=== PATIENT | female | born 1995 | race Two or more races ===

== ENCOUNTER 2025-03-28 06:34 | Emergency (ER) | payer BC, MEDICAID ==
[~2025-03-28] VITALS: Ht 152.4 cm; Wt 96.7 kg
[2025-03-28 07:57] LABS: Chloride 101 mmol/L (98-107)
[2025-03-28 07:58] LABS: Anion Gap 12 (5-15); Carbon Dioxide 22 mmol/L (20-31); Hematocrit 38.8 % (36.0-46.0); Hemoglobin 13.2 g/dL (12.2-16.2); Mean Corpuscular Hemoglobin 28.2 pg (28.0-32.0); Mean Corpuscular Volume 82.9 fL (80.0-100.0); Nucleated Red Blood Cells % 0.0 %
[2025-03-28 07:59] LABS: Calcium 8.9 mg/dL (8.7-10.4)
[2025-03-28] MEDS: PSEUDOEPHEDRINE HCL 30 MG TAB PO ONE (08:03)
[2025-03-28] MEDS: ONDANSETRON ODT 4 MG TAB PO ONE (08:04)
[2025-03-28] MEDS: ACETAMINOPHEN 325 MG TAB PO ONE (08:04)
[2025-03-28 08:05] LABS: BUN/Creatinine Ratio 6.5 (10.0-20.0); Blood Urea Nitrogen < 5 mg/dL (9-23); Glucose 119 mg/dL (74-106); Potassium 3.2 mmol/L (3.5-5.1); Sodium 135 mmol/L (136-145)
--- NOTE | 2025-03-28 08:07 | ED.PDOC ---
GI ASSESSMENT HPI Comments 29 y/o F, presents to the ED for CC of abdominal pain. Patient states, she has been experiencing epigastric abdominal pain with associated nausea and diarrhea sudden onset, last night (03/27/25). Patient denies vomiting, fatigue, or melena. No other symptoms or modifying factors are present at this time. 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 Family History Family History: Unknown Social History Smoker: Non-Smoker Alcohol: Denies ETOH Use Drugs: Denies Drug Use Lives In: Home Constitutional: reports: chills, fever; denies: diaphoresis, fatigue, malaise, sweats, weakness, others EENTM: denies: blurred vision, double vision, ear bleeding, ear discharge, ear drainage, ear pain, ear ringing, eye pain, eye redness, hearing loss, mouth pain, mouth swelling, nasal discharge, nose bleeding, nose congestion, nose pain, photophobia, tearing, throat pain, throat swelling, voice changes, others Respiratory: denies: cough, hemoptysis, orthopnea, SOB at rest, shortness of breath, SOB with excertion, stridor, wheezing, others Cardiovascular: denies: chest pain, dizzy spells, diaphoresis, Dyspnea on exertion, edema, irregular heart beat, left arm pain, lightheadedness, palpitations, PND, syncope, others Gastrointestinal: reports: abdominal pain, diarrhea, nausea; denies: abdomen distended, blood streaked bowels, constipated, dysphagia, difficulty swallowing, hematemesis, melena, poor appetite, poor fluid intake, rectal bleeding, rectal pain, vomiting, others Genitourinary: denies: abnormal vagina bleeding, burning, dyspareunia, dysuria, flank pain, frequency, hematuria, incontinence, pain, , vagina dischar ge, urgency, others Neurological: denies: dizziness, fainting, headache, left sided numbness, left sided weakness, numbness, paresthesia, pre-existing deficit, right sided numbness, right sided weakness, seizure, speech problems, tingling, tremors, weakness, others Musculoskeletal: denies: back pain, gout, joint pain, joint swelling, muscle pain, muscle stiffness, neck pain, others Integumetry: denies: bruises, change in color, change in hair/nails, dryness, laceration, lesions, lumps, rash, wounds, others Allergic/Immunocompromised: denies: Difficulty Healing, Frequent Infections, Hives, Itching, others Hematologic/Lymphatic: denies: anemia, blood clots, easy bleeding, easy bruising, swollen glands, others Endocrine: denies: excessive hunger, excessive sweating, excessive thirst, excessive urination, flushing, intolerance to cold, intolerance to heat, unexplained weight gain, unexplained weight loss, others Psychiatric: denies: anxiety, bipolar disorder, depression, hopeless, panic disorder, schizophrenia, sleepless, suicidal, others All Other Systems: Reviewed and Negative Physical Exam General Appearance: No Apparent Distress, Normal HEENT: Normal ENT Inspection, Pharynx Normal Neck: Full Range of Motion, Non-Tender, Normal, Normal Inspection Respiratory: Chest Non-Tender, Lungs Clear, No Accessory Muscle Use, No Respiratory Distress, Normal Breath Sounds Cardiovascular: No Edema, No Murmur, No Gallop, Normal Peripheral Pulses, Regular Rate/Rhythm Breast Exam: Deferred Gastrointestinal: No Organomegaly, Non Tender, No Pulsatile Mass, Normal Bowel Sounds, Soft Genitalia: Deferred Pelvic: Deferred Rectal: Deferred Extremities: No calf tenderness, Normal capillary refill, Normal inspection, Normal range of motion, Non-tender, No pedal edema Musculoskeletal : Apperance: Normal Neurologic: Alert, hydro mechanic II-XII nml as Tested, No Motor Deficits, Normal Affect, Normal Mood, No Sensory Deficits Cerebellar Function: Normal Reflexes: Normal Skin: Dry, Normal Color, Warm Lymphatic: No Adenopathy Was a procedure done? Was a procedure done?: No GI differential Dx Differential Diagnosis: Gastritis/PUD, Gastroenteritis, Inflammatory BD, Electrolyte Imbalance, Food Poisoning, Bacterial, Viral X-Ray, Labs, Meds, VS Vital Signs Date Time Temp Pulse Resp B/P (MAP) Pulse Ox O2 Delivery O2 Flow Rate FiO2 03/28/25 06:41 98.3 132 20 111/70 96 98.3 Lab Test 03/28/25 07:54 03/28/25 07:39 03/28/25 07:34 Range/Units Stool for White Cells Pending White Blood Count 14.3 H 4.4-10.8 10^3/uL Red Blood Count 4.68 4.0-5.20 10^6/uL Hemoglobin 13.2 12.2-16.2 g/dL Hematocrit 38.8 36.0-46.0 % Mean Corpuscular Volume 82.9 80.0-100.0 fL Mean Corpuscular Hemoglobin 28.2 28.0-32.0 pg Mean Corpuscular Hemoglobin Concent 34.0 32.0-36.0 g/dL Red Cell Distribution Width 13.8 11.8-14.3 % Platelet Count 326 140-450 10^3/uL Mean Platelet Volume 8.4 6.9-10.8 fL Neutrophils (%) (Auto) 90.8 H 37.0-80.0 % Lymphocytes (%) (Auto) 6.7 L 10.0-50.0 % Monocytes (%) (Auto) 2.3 0.0-12.0 % Eosinophils (%) (Auto) 0.0 0.0-7.0 % Basophils (%) (Auto) 0.2 0.0-2.0 % Neutrophils # (Auto) 12.9 H 1.6-8.6 10 ^3/uL Lymphocytes # (Auto) 1.0 0.4-5.4 10 ^3/uL Monocytes # (Auto) 0.3 0-1.3 10 ^3/uL Eosinophils # (Auto) 0 0-0.8 10 ^3/uL Basophils # (Auto) 0 0-0.2 10 ^3/uL Nucleated Red Blood Cells 0.0 % Sodium Level 135 L 136-145 mmol/L Potassium Level 3.2 L 3.5-5.1 mmol/L Chloride Level 101 98-107 mmol/L Carbon Dioxide Level 22 20-31 mmol/L Anion Gap 12 5-15 Blood Urea Nitrogen < 5 L 9-23 mg/dL Creatinine 0.77 0.550-1.02 mg/dL Glomerular Filtration Rate Calc 106 >90 mL/min BUN/Creatinine Ratio 6.5 L 10.0-20.0 Serum Glucose 119 H 74-106 mg/dL Calcium Level 8.9 8.7-10.4 mg/dL Urine Color Light-yellow Yellow Urine Clarity Clear Clear Urine pH 6.0 5.0-9.0 Urine Specific [place] 1.008 1.001-1.035 Urine Protein Negative Negative Urine Ketones Negative Negative Urine Blood 1+ H Negative /uL Urine Nitrite Negative Negative Urine Bilirubin Negative Negative Urine Urobilinogen Normal Negative mg/dL Urine Leukocyte Esterase Negative Negative /uL Urine RBC 2 0 - 4 /hpf Urine Microscopic WBC 1 0-5 /HPF Urine Squamous Epithelial Cells Few <5 /hpf Urine Bacteria None seen None Seen /hpf Urine Glucose Normal Normal mg/dL Urine Test Negative Negative Current Medications Medications (Trade) Dose Ordered Sig/Leida Route Start Time Stop Time Status Last Admin Ondansetron HCl (Zofran Po) 4 mg ONCE ONCE PO 03/28/25 07:30 03/28/25 07:31 DC 03/28/25 08:04 Acetaminophen (Tylenol Tablet) 650 mg ONCE ONCE PO 03/28/25 07:30 03/28/25 07:31 DC 03/28/25 08:04 Pseudoephedrine HCl (Sudafed Tablet) 30 mg ONCE ONCE PO 03/28/25 07:30 03/28/25 07:31 DC 03/28/25 08:03 Dicyclomine HCl (Bentyl Capsule) 20 mg ONCE ONCE PO 03/28/25 08:30 03/28/25 08:31 DC 03/28/25 09:04 Loperamide HCl (Imodium Capsule) 4 mg ONCE ONCE PO 03/28/25 08:30 03/28/25 08:31 DC 03/28/25 09:04 [place] [id number] Ph: [phone] DIAGNOSTIC IMAGING Diagnostic Imaging Report : [id number] Signed PATIENT: IRISH PETE ACCT: [id number] UNIT: [id number] : 1995 LOC: ER ROOM / BED: / AGE / SEX: 29 / F ADM STATUS: REG ER SERVICE [id number] ORDERING PHYSICIAN: SUSANNE ROBBINS MD PROCEDURE(s): CXRP - CHEST PORTABLE REASON: fever ORDER NUMBER(s): [id number], ACCESSION NUMBER(s): [id number] EXAM: XY CHEST PORTABLE Indication: fever Technique: Single frontal view of the chest was obtained Comparison: None FINDINGS: Lines and Tubes: None Lungs: No focal consolidation. Pleura: No effusion. No pneumothorax. Cardiomediastinal contours: Unremarkable Bones: No acute osseous abnormality. IMPRESSION: No acute cardiopulmonary disease. ATED BY: ZACK OTERO MD DICTATED DATE/TIME: 03/28/25911 SIGNED BY: ZACK OTERO MD SIGNED DATE/TIME: 03/28/25911 CC: Time of 1ST Reevaluation: 07:55 Reevaluation 1ST: Unchanged Patient Education/Counseling: Diagnosis, Treatment Family Education/Counseling: No Family Present SEPSIS Sepsis Screen Date sepsis recognized/suspect: Mar 28, 2025 Time Sepsis recognized/suspect: 0643 Recent Procedure: No On Antibiotic Therapy: No Respiratory Rate >20: No Heart Rate >90: Yes Temp<36 C (96.8 F) or >38.3 C: No SBP <90 or MAP <65 mmHG: No New Acute Mental Status Change: No Is the patient on CPAP, BIPAP,: No Physician Orders Chest Portable (03/28/25 07:29) Clostridium Difficile Toxin (03/28/25 08:10) Stool Bacterial Culture (03/28/25 08:10) Stool Wbc (03/28/25 08:10) Vital Signs Date Time Temp Pulse Resp B/P (MAP) Pulse Ox O2 Delivery O2 Flow Rate FiO2 03/28/25 06:41 98.3 132 20 111/70 96 98.3 Laboratory Tests Test 03/28/25 07:39 White Blood Count 14.3 10^3/uL (4.4-10.8) H Medications Medications Dose Ordered Sig/Leida Route Start Time Stop Time Status Last Admin Dose Admin Acetaminophen 650 mg ONCE ONCE PO 03/28/25 07:30 03/28/25 07:31 DC 03/28/25 08:04 Dicyclomine HCl 20 mg ONCE ONCE PO 03/28/25 08:30 03/28/25 08:31 DC 03/28/25 09:04 Loperamide HCl 4 mg ONCE ONCE PO 03/28/25 08:30 03/28/25 08:31 DC 03/28/25 09:04 Ondansetron HCl 4 mg ONCE ONCE PO 03/28/25 07:30 03/28/25 07:31 DC 03/28/25 08:04 Pseudoephedrine HCl 30 mg ONCE ONCE PO 03/28/25 07:30 03/28/25 07:31 DC 03/28/25 08:03 Departure 1 Departure Time of Disposition: 10:10 (Patient likely with a viral syndrome and viral gastroenteritis. We will discharge patient home with outpatient follow up) Impression: Primary Impression: Viral gastroenteritis Disposition: HOME / SELF CARE / HOMELESS Condition: Stable Additional Instructions: You likely have gastroenteritis. It is important to stay well hydrated and well rested. You can take [id number] loperamide as needed for diarrhea. This usually resolves within 1 week. If your symptoms worsen or you have any other concerns please return to the ER. Discharged With: Self Critical Care Note Critical Care Time?: No Stability Stability form required: No Heart Score Heart Score: Heart Score Response (Comments) Value History N/A 0 EKG N/A 0 Age N/A 0 Risk Factors N/A 0 Troponin N/A 0 Total 0 I personally scribed for SUSANNE ROBBINS MD ([email or web address]) on 03/28/25 at 08:07. Electronically submitted by Kim Albright ([email or web address]). I personally scribed for SUSANNE ROBBINS MD ([email or web address]) on 03/28/25 at 09:58. Electronically submitted by Kim Albright ([email or web address]). SUSANNE ROBBINS MD Mar 28, 2025 08:07
[2025-03-28 08:18] LABS: Urine Protein, UAD Negative (Negative)
[2025-03-28] MEDS: DICYCLOMINE HCL 10 MG CAP PO ONE (09:04)
[2025-03-28] MEDS: LOPERAMIDE HCL 2 MG CAP/TAB PO ONE (09:04)
--- NOTE | 2025-03-28 09:15 | DVH ---
EXAM: XY CHEST PORTABLE Indication: fever Technique: Single frontal view of the chest was obtained Comparison: None FINDINGS: Lines and Tubes: None Lungs: No focal consolidation. Pleura: No effusion. No pneumothorax. Cardiomediastinal contours: Unremarkable Bones: No acute osseous abnormality. IMPRESSION: No acute cardiopulmonary disease.
[2025-03-28 10:30] VITALS: BP 135/62; PULSE 84; RESP 18; TEMP 98.2; O2SAT 96; O2SAT 98
== END 2025-03-28 10:50 | disposition home or self-care (01) ==
LOC: ER 06:34 → EDBD 06:34 → ER 10:37
DX: A08.4 Viral intestinal infection, unspecified (principal)
CPT/HCPCS: 36415; 71045; 80048; 81001; 81025; 85025; 85048; 87045; 87427; 87493; 99284; J0500; Q0162